=== PATIENT | male | born 1975 | race Caucasian/White ===

== ENCOUNTER 2022-03-10 12:32 | Emergency (ER) | payer OTHER ==
[2022-03-10 14:09] LABS: BASOPHIL 0 % (0-2); EOSINOPHIL 0.2 % (0-5); HCT 33.4 % (42.0-52.0); HGB 10.8 g/dl (13.2-18.0); LYMPHOCYTE 5.8 % (15-48); MCH 27.2 pg (25.0-31.0); MCHC 32.3 g/dL (32.0-36.0); MCV 84.1 fL (78.0-100.0); MONOCYTE 5.5 % (0-12); MPV 11.4 fL (6.0-9.5); NRBC 0; PLT 77 K/uL (150-400); RBC 3.97 M/uL (4.70-6.00); RDW 20.3 % (11.5-14.0); WBC 6.6 K/uL (4.0-10.5)
[2022-03-10 14:20] LABS: INR 1.6 (0.9-1.2); PROTHROMBIN TIME 18.5 SECONDS (11.9-13.9); PTT 35.9 SECONDS (24.9-34.6)
[2022-03-10 14:23] LABS: CORONAVIRUS 2019 SARS-COV-2 NEGATIVE (NEGATIVE); INFLUENZA A NAA NEGATIVE (NEGATIVE)
[2022-03-10 14:35] LABS: D-DIMER 3.11 ug/mLFEU (0.00-0.41)
[2022-03-10 14:43] LABS: LACTIC ACID 9.3 mmol/L (0.4-1.9)
[2022-03-10 14:48] LABS: ALBUMIN 2.5 g/dL (3.4-5.0); BILIRUBIN - TOTAL 3.5 mg/dL (0.2-1.0); BUN/CREAT RATIO (CALC) 21.2 RATIO; CREATININE 2.93 mg/dL (0.67-1.17); FT4 (FREE T4) 0.9 ng/dL (0.76-1.46); GLOBULIN (CALCULATION) 4.7 g/dL; TOTAL PROTEIN 7.2 g/dL (6.4-8.2)
[2022-03-10 14:58] LABS: NEUTROPHIL 87.6 % (41-80)
== END 2022-03-10 17:57 | disposition other institution (70) ==
LOC: FER 12:32
PROVIDERS: Internal Medicine
DX: A41.9 Sepsis, unspecified organism (principal); J18.1 Lobar pneumonia, unspecified organism; J96.01 Acute respiratory failure with hypoxia; R65.20 Severe sepsis without septic shock; D64.9 Anemia, unspecified; I48.91 Unspecified atrial fibrillation; K92.2 Gastrointestinal hemorrhage, unspecified; N17.9 Acute kidney failure, unspecified; I10 Essential (primary) hypertension; F17.290 Nicotine dependence, other tobacco product, uncomplicated; Z88.1 Allergy status to other antibiotic agents; Z20.822 Contact with and (suspected) exposure to COVID-19
CPT/HCPCS: 36415; 36600; 71045; 80053; 82270; 82803; 83605; 84145; 84439; 84443; 84484; 85025; 85379; 85610; 85730; 86850; 86900; 86901; 87040; 93005; 94640; 94664; 94762; C9113; J1100; J2543; J7030; U0002